=== PATIENT | male | born 1960 | race Caucasian/White ===

== ENCOUNTER → 2016-10-29 | Outpatient (CLI) | payer OTHER ==
[~2016-10-29] MED LIST: IOHEXOL 350 MG/ML 10 ML VIAL (for RAD DIAG) IV ONE
--- NOTE | 2016-10-29 13:46 | RADRPT ---
EXAM DATE/TIME: 10/29/2016 13:13 [facility] COMPARISON: No previous studies available for comparison. INDICATIONS : Evaluate obstructive airway disease,weight loss,chest pains for three months on the right side. IV CONTRAST: 75 cc Omnipaque 350 (iohexol) IV RADIATION DOSE: 3.38 CTDIvol (mGy) MEDICAL HISTORY : Hypertension. SURGICAL HISTORY : None. ENCOUNTER: Initial ACUITY: 3 months PAIN SCALE: 5/10 LOCATION: Right chest TECHNIQUE: Volumetric scanning of the chest was performed. Using automated exposure control and adjustment of t he mA and/or kV according to patient size, radiation dose was kept as low as reasonably achievable to obtain optimal diagnostic quality images. FINDINGS: LUNGS: The lungs demonstrate biapical pleural thickening. There is a irregular area of parenchymal density i dentified within the left upper lobe medially measuring 1.0 x 0.9 x 0.7 cm in size. The remainder of the lungs are clear. No evidence of endobronchial lesion. PLEURA: There is no pleural thickening or pleural effusion. MEDIASTINUM: The heart and great vessels demonstrate no acute abnormality. There is no mediastinal or hilar lymph adenopathy. AXILLAE: Within normal limits. No lymphadenopathy. SKELETAL: Within normal limits for patient age. MISCELLANEOUS: The visualized upper abdominal organs demonstrate no acute abnormality. CONCLUSION: Biapical pleural thickening with nearby irregular noncalcified pulmonary nodule within the left lung apex. This may reflect sequelae of prior inflammation in the adjacent pleural thickening. However, gi colby the appearance of the nodule this may represent a small lung cancer. Recommend short interval fol lowup with CT to evaluate for interval change. Lynn Constantino MD on October 29, 2016 at 13:41 Board Certified Radiologist. This report was verified electronically.
== END ==
LOC: HRAD 12:01
PROVIDERS: ATTEND Family Medicine
DX: J44.9 Chronic obstructive pulmonary disease, unspecified (principal); R63.0 Anorexia; R63.4 Abnormal weight loss
CPT/HCPCS: 71260; Q9967

== ENCOUNTER → 2016-10-29 | Outpatient (CLI) | payer OTHER ==
[2016-10-29 12:46] LABS: AUTOMATED NEUTROPHIL # 4.4 TH/MM3 (1.8-7.7); BASOPHIL # 0.1 TH/MM3 (0-0.2); BASOPHIL % 0.8 % (0.0-2.0); EOSINOPHIL # 0.1 TH/MM3 (0-0.4); EOSINOPHIL % 1.3 % (0.0-4.0); HEMATOCRIT 41.7 % (39.0-51.0); HEMO FLAGS DIFF FINAL; LYMPH % 26.2 % (9.0-44.0); LYMPHOCYTE # 1.9 TH/MM3 (1.0-4.8); MEAN CELL VOLUME 89.7 FL (80.0-100.0); MEAN CORPUSCULAR HEMOGLOBIN 31.5 PG (27.0-34.0); MEAN CORPUSCULAR HGB CONC 35.1 % (32.0-36.0); MONO % 8.8 % (0.0-8.0); NEUT % 62.9 % (16.0-70.0); PLATELET COUNT 268 TH/MM3 (150-450); RED BLOOD COUNT 4.65 MIL/MM3 (4.50-5.90); RED CELL DISTRIBUTION WIDTH 13.3 % (11.6-17.2); WHITE BLOOD COUNT 7.1 TH/MM3 (4.0-11.0)
[2016-10-29 13:18] LABS: ALKALINE PHOSPHATASE 69 U/L (45-117); ALT (GPT) 24 U/L (12-78); ANION GAP 6 MEQ/L (5-15); AST (GOT) 26 U/L (15-37); BICARBONATE 28.8 MEQ/L (21.0-32.0); BLOOD UREA NITROGEN 13 MG/DL (7-18); CHLORIDE 103 MEQ/L (98-107); GLOMERULAR FILTRATION RATE 92 ML/MIN (>89); GLUCOSE,FASTING 84 MG/DL (74-99); HDL CHOLESTEROL 80.8 MG/DL (40.0-60.0); LDL CHOLESTEROL 93 MG/DL (0-99); POTASSIUM 4.2 MEQ/L (3.5-5.1); SODIUM (NA) 138 MEQ/L (136-145); TOTAL BILIRUBIN ADULT 0.3 MG/DL (0.2-1.0)
== END ==
LOC: CLAB 12:15
PROVIDERS: ATTEND Family Medicine
DX: J44.9 Chronic obstructive pulmonary disease, unspecified (principal); R63.4 Abnormal weight loss; R63.0 Anorexia; R53.83 Other fatigue; Z72.0 Tobacco use
CPT/HCPCS: 36415; 80053; 80061; 84443; 85025

== ENCOUNTER → 2017-05-05 | Outpatient (CLI) | payer OTHER ==
[~2017-05-05] MED LIST changes: +AMLO5TAB2 PO; -IOHEXOL 350 MG/ML 10 ML VIAL (for RAD DIAG) IV ONE
[2017-05-05 10:55] LABS: BICARBONATE 25.4 MEQ/L (21.0-32.0); POTASSIUM 3.9 MEQ/L (3.5-5.1)
== END ==
LOC: CLAB 10:13
PROVIDERS: ATTEND Nurse Practitioner Family
DX: R91.1 Solitary pulmonary nodule (principal)
CPT/HCPCS: 36415; 80069

== ENCOUNTER → 2017-05-07 | Outpatient (CLI) | payer OTHER ==
--- NOTE | 2017-05-07 13:26 | RADRPT ---
EXAM DATE/TIME: 05/07/2017 12:55 [facility] COMPARISON: CT THORAX W CONTRAST, October 29, 2016, 13:13. INDICATIONS : Follow up for pulmonary nodule. RADIATION DOSE: 3.37 CTDIvol (mGy) MEDICAL HISTORY : None SURGICAL HISTORY : Inguinal hernia repair. Hemorrhoidectomy. ENCOUNTER: Initial ACUITY: 1 day PAIN SCALE: 2/10 LOCATION: Bilateral chest TECHNIQUE: Volumetric scanning of the chest was performed. Using automated exposure control and adjustment of t he mA and/or kV according to patient size, radiation dose was kept as low as reasonably achievable to obtain optimal diagnostic quality images. DICOM format image data is available electronically for r eview and comparison. Follow-up recommendations for incidentally detected pulmonary nodules are based at a minimum on nodul e size and patient risk factors according to Fleischner Society Guidelines. FINDINGS: LUNGS: There is no consolidation or pneumothorax. Biapical pleural parenchymal scar is stable. In the media l left lung apex there is a stable 9 mm oval noncalcified pulmonary nodule. PLEURAE: There is no pleural thickening or pleural effusion. MEDIASTINUM: The heart and great vessels demonstrate no acute abnormality. There is no mediastinal or hilar lymph adenopathy. There is coronary artery calcification. AXILLAE: Within normal limits. No lymphadenopathy. MUSCULOSKELETAL: Within normal limits for patient age. MISCELLANEOUS: The visualized upper abdominal organs demonstrate no acute abnormality. CONCLUSION: 1. Stable 9 mm noncalcified nodule at the left lung apex adjacent to chronic biapical pleural-parench ymal scarring. Based on Fleischner Society followup recommendations, consider 6-12 month followup non contrast chest CT to confirm longer-term stability. 2. Coronary artery calcification. Bhupinder Lim MD on May 07, 2017 at 13:12 Board Certified Radiologist. This report was verified electronically.
== END ==
LOC: HRAD 12:28
PROVIDERS: ATTEND Family Medicine
DX: R91.1 Solitary pulmonary nodule (principal)
CPT/HCPCS: 71250

== ENCOUNTER 2018-03-04 14:00 | Emergency (ER) | payer SELFPAY ==
[~2018-03-04] VITALS: Ht 180.3 cm; Wt 55.0 kg
[2018-03-04 15:04] VITALS: BP 180/98; PULSE 66; RESP 16; TEMP 97.9; O2SAT 100
[2018-03-04] MEDS ORDERED: NAPR500T2 PO (16:35)
--- NOTE | 2018-03-04 16:35 | PD ---
HPI Chief Complaint: Injury Time Seen by Provider: 16:06 Travel History International Travel<30 days: No Contact w/Intl Traveler<30days: No Traveled to known affect area: No History of Present Illness HPI 57-year-old male presents to the emergency department with complaint of left knee pain and left hip pain 2 days. Said he was playing with his knees the other day and heard a "pop" in his left knee. Denies traumatic injury. Is ambulatory on the affected extremity. Denies paresthesias, loss of sensation, decreased range of motion, decreased strength to affected extremity. Rates pain 10/10. Has taken aspirin for symptom management. Aggravated with ambulation and movement. Better at rest. Denies significant past medical history. No primary care provider. No known allergies. No other medical complaints. No other modifying factors or associated signs and symptoms. PFSH Past Surgical History Abdominal Surgery: Yes (hernia repair as child) Social History Alcohol Use: Yes (6 pack per day) Tobacco Use: Yes (2ppd) Substance Use: Yes (marijanna) Allergies-Medications (Allergen,Severity, Reaction): Coded Allergies: No Known Allergies (Unverified Adverse Reaction, Unknown, 03/04/18) Reported Meds & Prescriptions Reported Meds & Active Scripts Active Naproxen 500 Mg Tab 500 Mg PO BID PRN 10 Days Amlodipine (Amlodipine Besylate) 5 Mg Tab 5 Mg PO DAILY Review of Systems Except as stated in HPI: all other systems reviewed are Neg Physical Exam Narrative GENERAL: Well-nourished, well-developed patient, in no acute distress ; afebrile, nontoxic-appearing SKIN: Warm and dry. HEAD: Atraumatic. Normocephalic. EYES: Pupils equal and round. No scleral icterus. No injection or drainage. ENT: Mucosa pink and moist. Airway patent. NECK: Trachea midline. CARDIOVASCULAR: Regular rate RESPIRATORY: No accessory muscle use. GASTROINTESTINAL: Flat. MUSCULOSKELETAL: Left hip with full range of motion; without erythema, edema, or ecchymosis; without tenderness on abduction; tenderness on palpation to the lateral aspect; no obvious deformity; no leg length discrepancy. Left knee without erythema, edema, ecchymosis; with full range of motion and flexion to 90 ; joint stable with negative drawer test; tenderness on palpation to the medial aspect. Left lower extremity is supple and non-tense with 2+ pedal pulse and sensory intact and without erythema or edema. Ambulatory in the room with a limp to the left lower extremity. NEUROLOGICAL: Awake and alert. Oriented 3. No obvious cranial nerve deficits. Motor grossly within normal limits. Normal speech. PSYCHIATRIC: Appropriate mood and affect; insight and judgment normal. Data Data Last Documented VS Vital Signs Date Time Temp Pulse Resp B/P (MAP) Pulse Ox O2 Delivery O2 Flow Rate FiO2 03/04/18 15:04 97.9 66 16 180/98 (125) 100 Orders Orders Ed Discharge Order (03/04/18 16:35) [facility] Medical Decision Making Medical Screen Exam Complete: Yes Emergency Medical Condition: Yes Medical Record Reviewed: Yes Differential Diagnosis Arthritis, knee sprain, hip pain, knee pain Narrative Course 57-year-old male with left hip pain and left knee pain. Denies traumatic injury. Patient is ambulatory in the room with a limp to the left lower extremity. I do not suspect fracture, dislocation and feel that imaging is not necessary at this time. Naproxen prescribed for home. Instructed patient to follow-up with primary care provider or orthopedics if symptoms persist greater than 7-10 days. Instructed patient to follow up with primary care provider. Patient verbalizes understanding and agreement with treatment plan. Patient is medically cleared and stable for discharge. Discussed reasons to return to the emergency department. Patient agrees with treatment plan. The patients vital signs are stable and the patient is stable for outpatient follow-up and treatment. Patient discharged home, stable and in no acute distress. Diagnosis Primary Impression: Left hip pain Additional Impression: Left knee pain Qualified Codes: M25.562 - Pain in left knee Referrals: Orthopaedic Surgeon Primary Care Physician Patient Instructions: General Instructions, Hip Pain (ED), Knee Pain (ED) Additional Instructions: Ibuprofen and/or Tylenol as directed and as needed for pain Cane as needed for support with ambulation Avoid aggravating activity; crease activity as tolerated Follow-up with orthopedics as needed Follow-up outpatient with primary care provider if symptoms persist greater than 7-10 days Follow-up with primary care provider Return to the emergency department immediately if worsening of symptoms Med/Other Pt SpecificInfo: Prescription(s) given Scripts Naproxen (Naproxen) 500 Mg Tab 500 MG PO BID Y for PAIN SCALE 1 TO 10 for 10 Days, #20 TAB 0 Refills Prov: Reena Botello 03/04/18 Disposition: 01 DISCHARGE HOME Condition: Stable Reena Botello March 04, 2018 16:35
== END 2018-03-04 16:54 | disposition home or self-care (01) ==
LOC: NEPK 14:00
DX: M25.552 Pain in left hip (principal); M25.562 Pain in left knee; F12.90 Cannabis use, unspecified, uncomplicated; F17.200 Nicotine dependence, unspecified, uncomplicated
CPT/HCPCS: 99283

== ENCOUNTER 2018-03-10 09:01 | Observation (INO) | payer SELFPAY ==
[2018-03-10] VITALS (7 sets, daily range): BP systolic 118–194; BP diastolic 67–111; PULSE 58–79; RESP 16–24; TEMP 97.5–98; O2SAT 96–100
[~2018-03-10] VITALS: Ht 180.3 cm; Wt 60.0 kg
[~2018-03-10 09:01] MED LIST changes: +NAPR500T2 PO
--- NOTE | 2018-03-10 09:57 | PD ---
HPI Chief Complaint: Respiratory Symptoms Time Seen by Provider: 09:54 Travel History International Travel<30 days: No Contact w/Intl Traveler<30days: No Traveled to known affect area: No History of Present Illness HPI 57-year-old male presents to the emergency department for evaluation of shortness of breath, lightheadedness, left-sided chest pain. Patient states that he has been short of breath and lightheaded for approximately 2 days. He states the shortness of breath is worse with exertion. Patient states the lightheadedness is worse with movement. He denies any syncope or falls. Patient also states that he has left-sided chest pain for 2 weeks. He cannot elaborate on any exacerbating or alleviating factors. He states is currently 5/ 10, occasionally sharp and occasionally aching. Patient states that he is not following with a primary care physician since the community clinic close. He was diagnosed with hypertension, but is not taking any medications at this time. He also states that he was told that he may "be getting COPD". Patient denies any cardiac history. No fevers or chills. No abdominal pain. No nausea , vomiting, diarrhea. Moderate severity. PFSH Past Surgical History Abdominal Surgery: Yes (hernia repair as child) Social History Alcohol Use: Yes (6 pack per day) Tobacco Use: Yes (2ppd) Substance Use: Yes (marijanna) Allergies-Medications (Allergen,Severity, Reaction): Coded Allergies: No Known Allergies (Unverified Adverse Reaction, Unknown, 03/04/18) Reported Meds & Prescriptions Reported Meds & Active Scripts Active Naproxen 500 Mg Tab 500 Mg PO BID PRN 10 Days Amlodipine (Amlodipine Besylate) 5 Mg Tab 5 Mg PO DAILY Review of Systems Except as stated in HPI: all other systems reviewed are Neg Physical Exam Narrative GENERAL: Well-nourished, well-developed male patient, ambulatory. Afebrile. SKIN: Focused skin assessment warm/dry. HEAD: Normocephalic. Atraumatic ENT: Mucosa pink and moist. No erythema or exudates. No uvular edema. No uvular , palatal, or tonsillar deviation. Airway patent. Nasal turbinates appear normal without nasal blood, purulent drainage or septal hematoma. Bilateral tympanic membranes clear without erythema or perforation. EYES: No scleral icterus. No injection or drainage. NECK: Supple, trachea midline. No JVD or lymphadenopathy. CARDIOVASCULAR: Regular rate and rhythm without murmurs, gallops, or rubs. Bilateral radial and pedal pulses are 2+. RESPIRATORY: Breath sounds equal bilaterally. No accessory muscle use. Lung sounds are clear to auscultation. GASTROINTESTINAL: Abdomen soft, non-tender, nondistended. MUSCULOSKELETAL: No cyanosis, or edema. Bilateral radial and pedal pulses are 2 +. BACK: Nontender without obvious deformity. No CVA tenderness. Data Data Last Documented VS Vital Signs Date Time Temp Pulse Resp B/P (MAP) Pulse Ox O2 Delivery O2 Flow Rate FiO2 03/10/18 10:37 69 16 155/84 (107) 99 Room Air 03/10/18 09:20 97.5 Orders Orders Electrocardiogram (03/10/18 10:38) B-Type Natriuretic Peptide (03/10/18 10:38) Ckmb (Isoenzyme) Profile (03/10/18 10:38) Complete Blood Count With Diff (03/10/18 10:38) Comprehensive Metabolic Panel (03/10/18 10:38) Magnesium (Mg) (03/10/18 10:38) Prothrombin Time / Inr (Pt) (03/10/18 10:38) Act Partial Throm Time (Ptt) (03/10/18 10:38) Troponin I (03/10/18 10:38) Lipase (03/10/18 10:38) Ecg Monitoring (03/10/18 10:38) Bilateral Bp Monitoring (03/10/18 10:38) Iv Access Insert/Monitor (03/10/18 10:38) Oximetry (03/10/18 10:38) Oxygen Administration (03/10/18 10:38) Aspirin (Aspirin) (03/10/18 10:45) Sodium Chloride 0.9% Flush (Ns Flush) (03/10/18 10:45) Chest, Pa & Lat (03/10/18 10:38) CKMB (03/10/18 11:00) CKMB% (03/10/18 11:00) Admit Order (Ed Use Only) (03/10/18 12:00) Labs Laboratory Tests Test 03/10/18 11:00 White Blood Count 6.5 TH/MM3 Red Blood Count 5.01 MIL/MM3 Hemoglobin 15.4 GM/DL Hematocrit 45.7 % Mean Corpuscular Volume 91.1 FL Mean Corpuscular Hemoglobin 30.6 PG Mean Corpuscular Hemoglobin Concent 33.6 % Red Cell Distribution Width 13.5 % Platelet Count 299 TH/MM3 Mean Platelet Volume 9.1 FL Neutrophils (%) (Auto) 60.8 % Lymphocytes (%) (Auto) 27.2 % Monocytes (%) (Auto) 10.4 % Eosinophils (%) (Auto) 0.9 % Basophils (%) (Auto) 0.7 % Neutrophils # (Auto) 4.0 TH/MM3 Lymphocytes # (Auto) 1.8 TH/MM3 Monocytes # (Auto) 0.7 TH/MM3 Eosinophils # (Auto) 0.1 TH/MM3 Basophils # (Auto) 0.0 TH/MM3 CBC Comment DIFF FINAL Differential Comment Prothrombin Time 10.8 SEC Prothromb Time International Ratio 1.1 RATIO Activated Partial Thromboplast Time 29.5 SEC Blood Urea Nitrogen 14 MG/DL Creatinine 0.80 MG/DL Random Glucose 90 MG/DL Total Protein 8.2 GM/DL Albumin 4.2 GM/DL Calcium Level 9.0 MG/DL Magnesium Level 2.1 MG/DL Alkaline Phosphatase 76 U/L Aspartate Amino Transf (AST/SGOT) 37 U/L Alanine Aminotransferase (ALT/SGPT) 30 U/L Total Bilirubin 0.5 MG/DL Sodium Level 138 MEQ/L Potassium Level 3.9 MEQ/L Chloride Level 101 MEQ/L Carbon Dioxide Level 26.2 MEQ/L Anion Gap 11 MEQ/L Estimat Glomerular Filtration Rate 99 ML/MIN Total Creatine Kinase 385 U/L Creatine Kinase MB 6.9 NG/ML Creatine Kinase MB % 1.8 % Troponin I LESS THAN 0.02 NG/ML B-Type Natriuretic Peptide 13 PG/ML Lipase 137 U/L [facility] Medical Decision Making Medical Screen Exam Complete: Yes Emergency Medical Condition: Yes Medical Record Reviewed: Yes Differential Diagnosis URI versus ACS versus COPD versus electrolyte abnormality Narrative Course 57-year-old male presents to the emergency department for evaluation of shortness breath, lightheadedness, left-sided chest pain. Patient is initially seen in the fast track area. However, he will be moved to medical bed for further evaluation and disposition. Mary Ellen Barron March 10, 2018 09:57
[2018-03-10] MEDS ORDERED: SODIUM CHLORIDE 0.9% FLUSH 10 ML FLUSH IVF PRN (10:45)
[2018-03-10] MEDS ORDERED: ASPIRIN 325 MG TAB PO ONE (10:45)
[2018-03-10 11:21] LABS: BASOPHIL % 0.7 % (0.0-2.0); EOSINOPHIL # 0.1 TH/MM3 (0-0.4); EOSINOPHIL % 0.9 % (0.0-4.0); HEMATOCRIT 45.7 % (39.0-51.0); HEMOGLOBIN 15.4 GM/DL (13.0-17.0); LYMPH % 27.2 % (9.0-44.0); LYMPHOCYTE # 1.8 TH/MM3 (1.0-4.8); MEAN CELL VOLUME 91.1 FL (80.0-100.0); MEAN CORPUSCULAR HEMOGLOBIN 30.6 PG (27.0-34.0); MEAN CORPUSCULAR HGB CONC 33.6 % (32.0-36.0); MEAN PLATELET VOLUME 9.1 FL (7.0-11.0); MONO % 10.4 % (0.0-8.0); MONOCYTE # 0.7 TH/MM3 (0-0.9); NEUT % 60.8 % (16.0-70.0); PLATELET COUNT 299 TH/MM3 (150-450); RED BLOOD COUNT 5.01 MIL/MM3 (4.50-5.90); RED CELL DISTRIBUTION WIDTH 13.5 % (11.6-17.2); WHITE BLOOD COUNT 6.5 TH/MM3 (4.0-11.0)
[2018-03-10 11:30] LABS: INTERNATIONAL NORMALIZED RATIO 1.1 RATIO; PROTHROMBIN TIME - PATIENT 10.8 SEC (9.8-11.6)
--- NOTE | 2018-03-10 11:30 | RADRPT ---
EXAM DATE: 03/10/2018 11:20 AM EDT AGE/SEX: 57 years / Male INDICATIONS: Chest pain CLINICAL DATA: This is the patient's initial encounter. Patient reports that signs and symptoms have been present for 4 - 6 days and indicates a pain score of 4/10. MEDICAL/SURGICAL HISTORY: Cardiovascular disease. None. COMPARISON: [facility] [place], 10/15/2015. . FINDINGS: Lungs are hyperexpanded Without new focal pleural or parenchymal opacities. Small nodule noted on previous chest CT exam is n ot well demonstrated on radiograph. Cardiomediastinal contours are within normal limits. Bony thorax is intact. CONCLUSION: 1. No acute abnormality or significant interval change. Electronically signed by: Fady Silva MD 03/10/2018 11:29 AM EDT
[2018-03-10 11:33] LABS: ALBUMIN 4.2 GM/DL (3.4-5.0); ALT (GPT) 30 U/L (12-78); AST (GOT) 37 U/L (15-37); BICARBONATE 26.2 MEQ/L (21.0-32.0); BLOOD UREA NITROGEN 14 MG/DL (7-18); CHLORIDE 101 MEQ/L (98-107); GLOMERULAR FILTRATION RATE 99 ML/MIN (>89); GLUCOSE,RANDOM 90 MG/DL (74-106); MAGNESIUM 2.1 MG/DL (1.5-2.5); SODIUM (NA) 138 MEQ/L (136-145)
[2018-03-10 11:37] LABS: ALKALINE PHOSPHATASE 76 U/L (45-117); TOTAL BILIRUBIN ADULT 0.5 MG/DL (0.2-1.0); TOTAL PROTEIN 8.2 GM/DL (6.4-8.2); TROPONIN I LESS THAN 0.02 NG/ML (0.02-0.05)
[2018-03-10] MEDS ORDERED: IOHEXOL 350 MG/ML 50 ML BTL (for Cath Lab) OTHER ONE (12:02)
--- NOTE | 2018-03-10 12:04 | PD ---
Physical Exam Date Seen by Provider: March 10, 2018 Time Seen by Provider: 11:00 Narrative I, Dr. Ortiz, have reviewed the advance practice practitioner's documentation and am in agreement, met with the patient face to face, made the diagnosis, and the medical decision making was done by me. *My assessment and Findings: Patient seen and evaluated initially by PA, please see PA notes for further details. In short, patient has history of COPD, coming in with a left-sided chest pains, little shortness of breath, satting at 100%. On exam, cardiac evaluation was fairly unremarkable. Pulmonary exam shows decreased breath sounds bilaterally without crackles. Initial EKG did not show any signs of acute ST changes. He is bradycardic at a rate of 56 bpm. Chest x-ray shows signs of COPD but no signs of other acute pulmonary processes. Lab work shows a negative cardiac enzymes. But considering his history, and atypical chest pain, my plan would be to admit him for further evaluation of chest pain. He has been given aspirin in the ER. Laboratory Tests Test 03/10/18 11:00 Monocytes (%) (Auto) 10.4 % (0.0-8.0) Total Creatine Kinase 385 U/L (39-308) Creatine Kinase MB 6.9 NG/ML (0.5-3.6) Troponin I LESS THAN 0.02 NG/ML Last 24 hours Impressions Chest X-Ray 03/10/18 1038 Signed Impressions: CONCLUSION: 1. No acute abnormality or significant interval change. Data Data Last Documented VS Vital Signs Date Time Temp Pulse Resp B/P (MAP) Pulse Ox O2 Delivery O2 Flow Rate FiO2 03/10/18 10:37 69 16 155/84 (107) 99 Room Air 03/10/18 09:20 97.5 Orders Orders Electrocardiogram (03/10/18 10:38) B-Type Natriuretic Peptide (03/10/18 10:38) Ckmb (Isoenzyme) Profile (03/10/18 10:38) Complete Blood Count With Diff (03/10/18 10:38) Comprehensive Metabolic Panel (03/10/18 10:38) Magnesium (Mg) (03/10/18 10:38) Prothrombin Time / Inr (Pt) (03/10/18 10:38) Act Partial Throm Time (Ptt) (03/10/18 10:38) Troponin I (03/10/18 10:38) Lipase (03/10/18 10:38) Ecg Monitoring (03/10/18 10:38) Bilateral Bp Monitoring (03/10/18 10:38) Iv Access Insert/Monitor (03/10/18 10:38) Oximetry (03/10/18 10:38) Oxygen Administration (03/10/18 10:38) Aspirin (Aspirin) (03/10/18 10:45) Sodium Chloride 0.9% Flush (Ns Flush) (03/10/18 10:45) Chest, Pa & Lat (03/10/18 10:38) CKMB (03/10/18 11:00) CKMB% (03/10/18 11:00) Admit Order (Ed Use Only) (03/10/18 12:00) Labs Laboratory Tests Test 03/10/18 11:00 White Blood Count 6.5 TH/MM3 Red Blood Count 5.01 MIL/MM3 Hemoglobin 15.4 GM/DL Hematocrit 45.7 % Mean Corpuscular Volume 91.1 FL Mean Corpuscular Hemoglobin 30.6 PG Mean Corpuscular Hemoglobin Concent 33.6 % Red Cell Distribution Width 13.5 % Platelet Count 299 TH/MM3 Mean Platelet Volume 9.1 FL Neutrophils (%) (Auto) 60.8 % Lymphocytes (%) (Auto) 27.2 % Monocytes (%) (Auto) 10.4 % Eosinophils (%) (Auto) 0.9 % Basophils (%) (Auto) 0.7 % Neutrophils # (Auto) 4.0 TH/MM3 Lymphocytes # (Auto) 1.8 TH/MM3 Monocytes # (Auto) 0.7 TH/MM3 Eosinophils # (Auto) 0.1 TH/MM3 Basophils # (Auto) 0.0 TH/MM3 CBC Comment DIFF FINAL Differential Comment Prothrombin Time 10.8 SEC Prothromb Time International Ratio 1.1 RATIO Activated Partial Thromboplast Time 29.5 SEC Blood Urea Nitrogen 14 MG/DL Creatinine 0.80 MG/DL Random Glucose 90 MG/DL Total Protein 8.2 GM/DL Albumin 4.2 GM/DL Calcium Level 9.0 MG/DL Magnesium Level 2.1 MG/DL Alkaline Phosphatase 76 U/L Aspartate Amino Transf (AST/SGOT) 37 U/L Alanine Aminotransferase (ALT/SGPT) 30 U/L Total Bilirubin 0.5 MG/DL Sodium Level 138 MEQ/L Potassium Level 3.9 MEQ/L Chloride Level 101 MEQ/L Carbon Dioxide Level 26.2 MEQ/L Anion Gap 11 MEQ/L Estimat Glomerular Filtration Rate 99 ML/MIN Total Creatine Kinase 385 U/L Creatine Kinase MB 6.9 NG/ML Creatine Kinase MB % 1.8 % Troponin I LESS THAN 0.02 NG/ML Lipase 137 U/L [facility] Medical Record Reviewed: Yes Supervised Visit with CASTRO: Yes Diagnosis Primary Impression: Chest pain Admitting Information Admitting Physician Requests: Admit Brigid Ortiz MD March 10, 2018 12:04
[2018-03-10] MEDS ORDERED: NITROGLYCERIN 0.4 MG SL 25 TABS/BTL SL PRN (12:30)
[2018-03-10] MEDS ORDERED: ONDANSETRON ODT 4 MG TAB PO PRN (12:30)
--- NOTE | 2018-03-10 13:14 | HHI.HP ---
HPI Primary Care Physician No Primary Care Physician Chief Complaint Chest pain and dyspnea History of Present Illness 57-year-old male with history of hypertension (currently not on medication), 90 pack year history of smoking, and known left lobe mass presents to ER for further evaluation of chest pain and dyspnea. Reports similar symptoms a couple of years ago. Reports discomfort lead PCP to run tests, identifying left lobe mass. Endorses PET scan completed last year and was recommended to follow up CT chest every 6 months. Since this time [facility] as closed and efforts have been unsuccessful obtaining a PCP. Unable to afford [facility] and reports not being a candidate for [facility]. Intermittent chest discomfort x1 week. No precipitating or relieving factors. Quick onset characterized as "jabbing pain." Location bilateral inframammary area. No radiation. Severe moderate. Associated symptoms include nausea and dyspnea. No vomiting or diaphoresis. Duration "only a few minutes." Total of 3-4 episodes, generally experiencing discomfort daily or every other day. In regards to dyspnea, endorses long standing history of smoking, recently quit one month ago. Dyspnea x1 week after walking short distances and does not have associated chest pain. Recovers within 5 minutes. Associated symptoms of "lightheadedness. " No increase in sputum production or cough. No recent fever, chills, or illness. (Crys Spencer) Review of Systems General: No fatigue, weakness, fever, chills, or recent illness. Has been in his general state of health. HEENT: No CARIAS, no vision changes, no nasal congestion or drainage CV: As stated above. No current chest pain or pressure. No intermittent leg pain. RESP: As stated above, exertional dyspnea after walking short distances. No increase in daily productive cough of white mucus. No hemoptysis. Known left lobe mass. GI: No nausea, vomiting, or bowel changes.Endorses poor appetite for "at least 2 years." : No dysuria, urgency, frequency EXT: No lower leg edema, no paraesthesias MS: No discomfort, injury, or change in ROM NEURO: No change in memory, difficulty with balance, LOC, motor/sensory deficits PSYCH: No anxiety or depression SKIN: No rashes, no concerning lesions (Crys Spencer) Past Family Social History Allergies: Coded Allergies: No Known Allergies (Unverified Adverse Reaction, Unknown, 03/04/18) Past Medical History Hypertension Past Surgical History Hernia repair Reported Medications Reported Meds & Active Scripts Active None Active Ordered Medications Current Medications Medications (Trade) Dose Ordered Sig/Reji Route Start Time Stop Time Status Last Admin (NS Flush) 2 ml UNSCH PRN IVF 03/10/18 10:45 (NS Flush) 2 ml BID IV FLUSH 03/10/18 21:00 (Tylenol) 500 mg Q4H PRN PO 03/10/18 12:30 (Zofran Odt) 4 mg Q6H PRN PO 03/10/18 12:30 (Nitrostat Sl) 0.4 mg Q5M PRN SL 03/10/18 12:30 (Aspirin) 325 mg DAILY PO 03/11/18 09:00 (Norvasc) 5 mg DAILY PO 03/10/18 12:45 Family History Noncontributory for early onset cardiovascular disease. Mother had hypertension and cardiomegaly, in her early 50s. Social History Known hypertension, currently not on any medications. No known hyperlipidemia, diabetes, or CAD. Former smoker quitting 1 month ago. Started smoking age 8, endorses 1.5-2 packs daily. Former alcohol abuse, quitting 2 year ago. Endorses regularly smokes marijuana when able. 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 Past cardiac testing None (Crys Spencer) Physical Exam Vital Signs Vital Signs Date Time Temp Pulse Resp B/P (MAP) Pulse Ox O2 Delivery O2 Flow Rate FiO2 03/10/18 10:37 69 16 155/84 (107) 99 Room Air 03/10/18 09:20 97.5 79 24 179/92 (121) 100 Physical Exam GENERAL: Alert thin, WD, NAD, pleasant, male who appears older than stated age somewhat unkempt. HEAD: NC, AT EYES: Sclera clear, conjunctiva without injection, pupils equal and round ENT: Mucous membranes pink and moist, poor dentition, leukoplakia. NECK: Supple, no masses, trachea midline CV: RRR, without murmur, rub, gallop, no JVD, S1-S2 no S3-S4. No carotid bruits. Chest wall nontender with palpation. RESP: Diminished lungs throughout bilateral, no crackles, wheeze, or rhonchi. Symmetrical chest rise, nonlabored, able to speak in full sentences ABD: Soft, NT, ND, no masses, positive bowel tones EXT: Pulses +1x4, no dependent edema MS: Normal tone x4 extremities, no obvious deformities, full range of motion NEURO: CN II through CN XII grossly intact, motor strength 5/5 PSYCH: A+O x3, pleasant affect, speech, mood, insight and judgment SKIN: Normal turgor, normal texture, no lesions, no rashes, solar damage Laboratory Laboratory Tests Test 03/10/18 11:00 White Blood Count 6.5 Red Blood Count 5.01 Hemoglobin 15.4 Hematocrit 45.7 Mean Corpuscular Volume 91.1 Mean Corpuscular Hemoglobin 30.6 Mean Corpuscular Hemoglobin Concent 33.6 Red Cell Distribution Width 13.5 Platelet Count 299 Mean Platelet Volume 9.1 Neutrophils (%) (Auto) 60.8 Lymphocytes (%) (Auto) 27.2 Monocytes (%) (Auto) 10.4 Eosinophils (%) (Auto) 0.9 Basophils (%) (Auto) 0.7 Neutrophils # (Auto) 4.0 Lymphocytes # (Auto) 1.8 Monocytes # (Auto) 0.7 Eosinophils # (Auto) 0.1 Basophils # (Auto) 0.0 CBC Comment DIFF FINAL Differential Comment Prothrombin Time 10.8 Prothromb Time International Ratio 1.1 Activated Partial Thromboplast Time 29.5 Blood Urea Nitrogen 14 Creatinine 0.80 Random Glucose 90 Total Protein 8.2 Albumin 4.2 Calcium Level 9.0 Magnesium Level 2.1 Alkaline Phosphatase 76 Aspartate Amino Transf (AST/SGOT) 37 Alanine Aminotransferase (ALT/SGPT) 30 Total Bilirubin 0.5 Sodium Level 138 Potassium Level 3.9 Chloride Level 101 Carbon Dioxide Level 26.2 Anion Gap 11 Estimat Glomerular Filtration Rate 99 Total Creatine Kinase 385 Creatine Kinase MB 6.9 Creatine Kinase MB % 1.8 Troponin I LESS THAN 0.02 B-Type Natriuretic Peptide 13 Lipase 137 (Crys Spencer) Physical Exam Mouth: Very poor dentition with severe caries and some leukoplakia right lower gum near jaw. (Sebastian Lovett MD) Result Diagram: 03/10/18 1100 03/10/18 1100 Imaging Last 48 hours Impressions Chest X-Ray 03/10/18 1038 Signed Impressions: CONCLUSION: 1. No acute abnormality or significant interval change. Course EKG NSR, normal axis, no st t segment change (Crys Spencer) Caprini VTE Risk Assessment Caprini VTE Risk Assessment: No/Low Risk (score <= 1) Caprini Risk Assessment Model Point Value = 1 Point Value = 2 Point Value = 3 Point Value = 5 Age 41-60 Minor surgery BMI > 25 kg/m2 Swollen legs Varicose veins or History of unexplained or recurrent spontaneous Oral contraceptives or hormone replacement Sepsis (< 1 month) Serious lung disease, including pneumonia (< 1 month) Abnormal pulmonary function Acute myocardial infarction Congestive heart failure (< 1 month) History of inflammatory bowel disease Medical patient at bed rest Age 61-74 Arthroscopic surgery Major open surgery (> 45 min) Laparoscopic surgery (> 45 min) Malignancy Confined to bed (> 72 hours) Immobilizing plaster cast Central venous access Age >= 75 History of VTE Family history of VTE Factor V Leiden Prothrombin [id number] Lupus anticoagulant Anticardiolipin antibodies Elevated serum homocysteine Heparin-induced thrombocytopenia Other congenital or acquired thrombophilia Stroke (< 1 month) Elective arthroplasty Hip, pelvis, or leg fracture Acute spinal cord injury (< 1 month) Prophylaxis Regimen Total Risk Factor Score Risk Level Prophylaxis Regimen 0-1 Low Early ambulation 2 Moderate Order ONE of the following: *Sequential Compression Device (SCD) *Heparin 5000 units SQ BID 3-4 Higher Order ONE of the following medications: *Heparin 5000 units SQ TID *Enoxaparin/Lovenox 40 mg SQ daily (WT < 150 kg, CrCl > 30 mL/min) *Enoxaparin/Lovenox 30 mg SQ daily (WT < 150 kg, CrCl > 10-29 mL/min) *Enoxaparin/Lovenox 30 mg SQ BID (WT < 150 kg, CrCl > 30 mL/min) AND/OR *Sequential Compression Device (SCD) 5 or more Highest Order ONE of the following medications: *Heparin 5000 units SQ TID (Preferred with Epidurals) *Enoxaparin/Lovenox 40 mg SQ daily (WT < 150 kg, CrCl > 30 mL/min) *Enoxaparin/Lovenox 30 mg SQ daily (WT < 150 kg, CrCl > 10-29 mL/min) *Enoxaparin/Lovenox 30 mg SQ BID (WT < 150 kg, CrCl > 30 mL/min) AND *Sequential Compression Device (SCD) (Crys Spencer) Assessment and Plan Assessment and Plan #1 Atypical chest pain-admitted to chest pain center. Rule out with 3 sets of EKGs, cardiac enzymes, and monitor on telemetry. Will be seen and dilated by Dr. Sebastian Lovett. Discomfort most likely pleuritic or musculoskeletal in nature, however due to multiple risk factors cardiac testing he unreasonable. Further disposition to follow after evaluation by technician support engineer. Verbalized understanding and agreed with plan of care. #2 Hypertension-restart amlodipine 5 mg p.o. daily, prescription will be provided upon discharge, encouraged establishing with a PCP, previously made aware of [facility] and [facility] in area. Reports he is not a candidate for either clinic. #3 History of left lobe mass-establish with a PCP for recommended chest CT every 6 months, PET scan negative May 2017, discussed unlikelihood of repeating CT chest however this will be determined after evaluation of technician support engineer. #4 COPD-discussed symptoms likely due to long standing history of tobacco use, no acute physical findings, albuterol nebs Q2H PRN for SOB/wheezing. Instructed to notify RN as needed. Verbalized understanding. Discussed importance of not restarting tobacco use. Discussed cost of inhalers and his inability to afford in length. Encouraged him to reconsider [facility] and/or speaking with someone from Human Services. #5 Tobacco use-strongly encouraged and stressed the importance of continuing tobacco cessation (Crys Spencer) Assessment and Plan Plan discussed and agreed upon. Will obtain FU evaluation of the reported lung mass and then evaluate for ischemia by protocol. (Sebastian Lovett MD) Crys Spencer March 10, 2018 13:14 Sebastian Lovett MD March 10, 2018 15:30
[2018-03-10] MEDS ORDERED: RESP: ALBUTEROL 2.5 MG/3 ML NEB (PRN) NEB (13:15)
[2018-03-10] MEDS: amLODIPine BESYLATE 5 MG TAB PO SCH (14:09)
--- NOTE | 2018-03-10 15:54 | EKG ---
Date Performed: 03/10/2018 Time Performed: 11:23:18 PTAGE: 57 years EKG: SINUS BRADYCARDIA BORDERLINE ECG Rate has slowed otherwise no significant change PREVIOUS TRACING : 10/15/2015 11.12 DOCTOR: Sebastian Lovett Interpretating Date/Time 03/10/2018 15:52:39
[2018-03-10 16:29] LABS: TROPONIN I LESS THAN 0.02 NG/ML (0.02-0.05)
--- NOTE | 2018-03-10 16:51 | RADRPT ---
EXAM DATE: 03/10/2018 4:27 PM EDT AGE/SEX: 57 years / Male INDICATIONS: Shortness of breath, chest pain CLINICAL DATA: This is the patient's initial encounter. Patient reports that signs and symptoms have been present for 1 day and indicates a pain score of 5/10. MEDICAL/SURGICAL HISTORY: Chronic obstructive pulmonary disease. Hypertension. Abnormality on left lung None. RADIATION DOSE: 5.23 CTDI (mGy) COMPARISON: [facility] [place], CT THORAX W/O CONTRAST, 05/07/2017. . TECHNIQUE: Multiple contiguous axial images were obtained through the chest without contrast. Image s were obtained in suspended respiration using multiple row detector helical technique. Using automa nile exposure control and adjustment of the mA and/or kV according to patient size, radiation dose was kept as low as reasonably achievable to obtain optimal diagnostic quality images. FINDINGS: Lung: Redemonstration of biapical parenchymal scarring with a stable 8 mm subpleural nodule anterior ly in the left lung apex. No additional focal new parenchymal opacities. Pleura: No effusion, significant pleural thickening or pneumothorax. Mediastinum: Heart is unremarkable without pericardial effusion. No evidence of mediastinal or hilar adenopathy. Mild coronary artery cavitations. Osseous Structures: No abnormal focal lytic or blastic bony lesions. Soft Tissues: Soft tissues are unremarkable. No significant axillary adenopathy. Other: Visualized upper abdomen is unremarkable. CONCLUSION: 1. Redemonstration of biapical scarring with stable 8 mm subpleural solid nodule in the anterior lef t lung apex. Consider follow-up CT examination in 18-24 months per 2017 Fleischner criteria. 2. Mild coronary artery calcifications. Electronically signed by: Fady Silva MD 03/10/2018 4:50 PM EDT
[2018-03-10] MEDS ORDERED: cloNIDine HCL 0.1 MG TAB PO PRN (17:30)
[2018-03-10 18:58] LABS: TROPONIN I LESS THAN 0.02 NG/ML (0.02-0.05)
[2018-03-10] MEDS: SODIUM CHLORIDE 0.9% FLUSH 10 ML FLUSH IV FLUSH SCH (20:19)
[2018-03-11] VITALS (7 sets, daily range): BP systolic 139–151; BP diastolic 64–81; PULSE 59–70; RESP 16–22; TEMP 97.7–98.7; O2SAT 97–100
--- NOTE | 2018-03-11 08:02 | PD.CARD.PN ---
Subjective Subjective Remarks Intermittent sharp pain overnight, no precipitating or relieving factors, duration generally last seconds. No associated symptoms. States similar discomfort a couple of years ago. Otherwise no further complaints, slept well Objective Medications Current Medications Medications (Trade) Dose Ordered Sig/Reji Route Start Time Stop Time Status Last Admin (NS Flush) 2 ml UNSCH PRN IVF 03/10/18 10:45 (NS Flush) 2 ml BID IV FLUSH 03/10/18 21:00 (Tylenol) 500 mg Q4H PRN PO 03/10/18 12:30 (Zofran Odt) 4 mg Q6H PRN PO 03/10/18 12:30 (Nitrostat Sl) 0.4 mg Q5M PRN SL 03/10/18 12:30 (Aspirin) 325 mg DAILY PO 03/11/18 09:00 (Norvasc) 5 mg DAILY PO 03/10/18 12:45 03/10/18 14:09 (Albuterol Neb) 2.5 mg Q2HR NEB PRN NEB 03/10/18 13:15 (Catapres) 0.1 mg Q6H PRN PO 03/10/18 17:30 Vital Signs / I&O Vital Signs Date Time Temp Pulse Resp B/P (MAP) Pulse Ox O2 Delivery O2 Flow Rate FiO2 03/11/18 07:55 97 21 03/11/18 07:34 97.7 64 16 147/81 (103) 98 03/11/18 04:12 98.0 62 16 151/74 (99) 98 03/10/18 23:25 98.0 62 16 118/67 (84) 96 03/10/18 19:20 97.8 62 18 153/73 (99) 99 03/10/18 15:33 97.8 60 18 184/91 (122) 100 03/10/18 14:09 58 16 194/111 (138) 99 Room Air 03/10/18 12:58 100 21 03/10/18 10:37 69 16 155/84 (107) 99 Room Air 03/10/18 09:20 97.5 79 24 179/92 (121) 100 I/O 03/10/18 03/10/18 03/10/18 03/11/18 03/11/18 03/11/18 07:00 15:00 23:00 07:00 15:00 23:00 Intake Total 240 ml Balance 240 ml Intake Oral 240 ml # Voids 1 Physical Exam GENERAL: Alert WN, WD, NAD, pleasant, thin, unkempt, male who appears older than stated age HEAD: NC, AT CV: RRR, without murmur, rub, gallop, no JVD, S1-S2 no S3-S4. RESP: Clear lungs throughout bilateral, no crackles, wheeze, rhonchi, symmetrical chest rise, nonlabored, able to speak in full sentences PSYCH: A+O x3, pleasant affect,speech, appropriate mood, insight and judgment SKIN: Normal turgor, normal texture Laboratory Laboratory Tests Test 03/10/18 11:00 03/10/18 15:20 03/10/18 18:10 White Blood Count 6.5 TH/MM3 Red Blood Count 5.01 MIL/MM3 Hemoglobin 15.4 GM/DL Hematocrit 45.7 % Mean Corpuscular Volume 91.1 FL Mean Corpuscular Hemoglobin 30.6 PG Mean Corpuscular Hemoglobin Concent 33.6 % Red Cell Distribution Width 13.5 % Platelet Count 299 TH/MM3 Mean Platelet Volume 9.1 FL Neutrophils (%) (Auto) 60.8 % Lymphocytes (%) (Auto) 27.2 % Monocytes (%) (Auto) 10.4 % Eosinophils (%) (Auto) 0.9 % Basophils (%) (Auto) 0.7 % Neutrophils # (Auto) 4.0 TH/MM3 Lymphocytes # (Auto) 1.8 TH/MM3 Monocytes # (Auto) 0.7 TH/MM3 Eosinophils # (Auto) 0.1 TH/MM3 Basophils # (Auto) 0.0 TH/MM3 CBC Comment DIFF FINAL Differential Comment Prothrombin Time 10.8 SEC Prothromb Time International Ratio 1.1 RATIO Activated Partial Thromboplast Time 29.5 SEC Blood Urea Nitrogen 14 MG/DL Creatinine 0.80 MG/DL Random Glucose 90 MG/DL Total Protein 8.2 GM/DL Albumin 4.2 GM/DL Calcium Level 9.0 MG/DL Magnesium Level 2.1 MG/DL Alkaline Phosphatase 76 U/L Aspartate Amino Transf (AST/SGOT) 37 U/L Alanine Aminotransferase (ALT/SGPT) 30 U/L Total Bilirubin 0.5 MG/DL Sodium Level 138 MEQ/L Potassium Level 3.9 MEQ/L Chloride Level 101 MEQ/L Carbon Dioxide Level 26.2 MEQ/L Anion Gap 11 MEQ/L Estimat Glomerular Filtration Rate 99 ML/MIN Total Creatine Kinase 385 U/L 321 U/L 316 U/L Creatine Kinase MB 6.9 NG/ML 5.6 NG/ML 5.3 NG/ML Creatine Kinase MB % 1.8 % 1.7 % 1.7 % Troponin I LESS THAN 0.02 NG/ML LESS THAN 0.02 NG/ML LESS THAN 0.02 NG/ML B-Type Natriuretic Peptide 13 PG/ML Lipase 137 U/L Imaging Last 24 hours Impressions Chest X-Ray 03/10/18 1038 Signed Impressions: CONCLUSION: 1. No acute abnormality or significant interval change. Assessment and Plan Assessment and Plan Proceed with plan to complete Lexiscan this a.m. If unremarkable, plans to be discharged home and establish with a primary care provider. Agree with the plan of care. Crys Spencer March 11, 2018 08:02
[2018-03-11] MEDS: amLODIPine BESYLATE 5 MG TAB PO SCH (08:08)
[2018-03-11] MEDS: SODIUM CHLORIDE 0.9% FLUSH 10 ML FLUSH IV FLUSH SCH ×2 (08:08→21:00)
[2018-03-11] MEDS: ASPIRIN 325 MG TAB PO SCH (08:08)
[2018-03-11] MEDS ORDERED: REGADENOSON INJ 0.4 MG/5 ML SYR ONE (10:07)
--- NOTE | 2018-03-11 10:41 | EKG ---
Date Performed: 03/10/2018 Time Performed: 17:43:29 PTAGE: 57 years EKG: Sinus rhythm NORMAL ECG PREVIOUS TRACING : 03/10/2018 15.39 DOCTOR: Kervin Conner Interpretating Date/Time 03/11/2018 10:40:37
--- NOTE | 2018-03-11 10:42 | EKG ---
Date Performed: 03/10/2018 Time Performed: 15:39:11 PTAGE: 57 years EKG: Sinus rhythm NORMAL ECG PREVIOUS TRACING : 03/10/2018 11.23 Since previous tracing, no significant change noted DOCTOR: Kervin Conner Interpretating Date/Time 03/11/2018 10:41:11
--- NOTE | 2018-03-11 11:45 | RADRPT ---
EXAM DATE: 03/11/2018 11:09 AM EDT AGE/SEX: 57 years / Male INDICATIONS:Angina. . Substernal chest pain with lightheadedness. CLINICAL DATA: This is the patient's initial encounter. Patient reports that signs and symptoms have been present for 1 day and indicates a pain score of 0/10. MEDICAL/SURGICAL HISTORY: Hypertension. Umbilical hernia repair. COMPARISON: No prior [facility] exams available for comparison. No external comparison. DOSE: 8.5 mCi Tc 99m Myoview at rest 25.5 mCi [id number] at rest 0.4 mg Lexiscan STRESS SYMPTOMS: None noted. EJECTION FRACTION: 52 % TECHNIQUE: The patient underwent pharmacologic stress with infusion of prescribed dose. Continuous ECG tracing was monitored during stress. Gated SPECT imaging was performed after stress and conventi onal SPECT imaging was performed at rest. The examination was performed on a SPECT/CT scanner, both attenuation and non-corrected datasets were reviewed. FINDINGS: Distribution: The maximum perfused segment at stress is in the lateral wall. Perfusion Study: Decrease perfusion at stress in the mid to apical septal wall. Gated Study: Hypokinetic septal wall. The ejection fraction is calculated at 52%. RISK CATEGORY: Intermediate (1-3 % Annual Mortality Rate) CONCLUSION: 1. Findings consistent with moderate size septal wall ischemia. 2. Hypokinetic septal wall with EF of 52%. Electronically signed by: Fady Silva MD 03/11/2018 11:43 AM EDT
--- NOTE | 2018-03-11 13:13 | PD.CONS ---
HPI Service cardiology Consult Requested By Reason for Consult chest pain and dyspnea Primary Care Physician No Primary Care Physician History of Present Illness This is a 57 yo WM with HTN, tobacco smoker (2ppd) and stable L lung mass (2017 PET scan negative) and no known cardiac history who presents with chest pain and dyspnea. He reports having chronic intermittent chest pain x several years; in the past week it has progressively worsened and now feels like a heavy weight on his chest worsened with exertion. He also has chronic dyspnea that he attributes to his usp smoking. Troponin levels x 3 are negative and EKG is unremarkable. Lexiscan shows abnormal showing moderate septal wall ischemia. He is currently resting comfortably with continued intermittent chest pain. (Deepa Ortega) Review of Systems Consitutional: DENIES: Fatigue, Fever, Chills, Weight gain, Weight loss Respiratory: DENIES: Cough, Snoring, Wheezing, Sputum production Cardiovascular: DENIES: Palpitations, Syncope, Tachycardia Gastrointestinal: DENIES: Nausea, Vomiting, Change in bowel habits, Reflux, Bloody stools, Melena (Deepa Ortega) Past Family Social History Allergies: Coded Allergies: No Known Allergies (Unverified Adverse Reaction, Unknown, 03/04/18) Past Medical History Hypertension Past Surgical History Hernia repair Reported Medications Reported Meds & Active Scripts Active Naproxen 500 Mg Tab 500 Mg PO BID PRN 10 Days Amlodipine (Amlodipine Besylate) 5 Mg Tab 5 Mg PO DAILY Active Ordered Medications Current Medications Medications (Trade) Dose Ordered Sig/Reji Route Start Time Stop Time Status Last Admin (NS Flush) 2 ml UNSCH PRN IVF 03/10/18 10:45 (NS Flush) 2 ml BID IV FLUSH 03/10/18 21:00 03/11/18 08:08 (Tylenol) 500 mg Q4H PRN PO 03/10/18 12:30 (Zofran Odt) 4 mg Q6H PRN PO 03/10/18 12:30 (Nitrostat Sl) 0.4 mg Q5M PRN SL 03/10/18 12:30 (Aspirin) 325 mg DAILY PO 03/11/18 09:00 03/11/18 08:08 (Norvasc) 5 mg DAILY PO 03/10/18 12:45 03/11/18 08:08 (Albuterol Neb) 2.5 mg Q2HR NEB PRN NEB 5/24/18 13:15 (Catapres) 0.1 mg Q6H PRN PO 03/10/18 17:30 Family History Noncontributory for early onset cardiovascular disease. Mother had hypertension and cardiomegaly, in her early 50s. Social History Former smoker quitting 1 month ago. Started smoking age 8, endorses 1.5-2 packs daily. Former alcohol abuse, quitting 2 year ago. Endorses regularly smokes marijuana when able. 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 (Deepa Ortega) Physical Exam Vital Signs Vital Signs Date Time Temp Pulse Resp B/P (MAP) Pulse Ox O2 Delivery O2 Flow Rate FiO2 03/11/18 11:51 98.6 70 18 139/73 (95) 100 03/11/18 07:55 97 21 03/11/18 07:34 97.7 64 16 147/81 (103) 98 03/11/18 04:12 98.0 62 16 151/74 (99) 98 03/10/18 23:25 98.0 62 16 118/67 (84) 96 03/10/18 19:20 97.8 62 18 153/73 (99) 99 03/10/18 15:33 97.8 60 18 184/91 (122) 100 03/10/18 14:09 58 16 194/111 (138) 99 Room Air Physical Exam GENERAL: SKIN: Warm and dry. HEAD: Atraumatic. Normocephalic. EYES: Pupils equal and round. No scleral icterus. No injection or drainage. ENT: No nasal bleeding or discharge. Mucous membranes pink and moist. NECK: Trachea midline. No JVD. CARDIOVASCULAR: Regular rate and rhythm. no murmurs RESPIRATORY: No accessory muscle use. Clear to auscultation. Breath sounds equal bilaterally. GASTROINTESTINAL: Abdomen soft, non-tender, nondistended. MUSCULOSKELETAL: Extremities without clubbing, cyanosis, or edema. No obvious deformities. NEUROLOGICAL: Awake and alert. No obvious cranial nerve deficits. Motor grossly within normal limits. Normal speech. PSYCHIATRIC: Appropriate mood and affect; insight and judgment normal. Laboratory Laboratory Tests Test 03/10/18 15:20 03/10/18 18:10 Total Creatine Kinase 321 316 Creatine Kinase MB 5.6 5.3 Creatine Kinase MB % 1.7 1.7 Troponin I LESS THAN 0.02 LESS THAN 0.02 (Deepa Ortega) Result Diagram: 03/10/18 1100 03/10/18 1100 Imaging Last 24 hours Impressions Myocardial Perfusion Scan Nuc Med 03/11/18 0000 Signed Impressions: CONCLUSION: 1. Findings consistent with moderate size septal wall ischemia. 2. Hypokinetic septal wall with EF of 52%. (Deepa Ortega) Assessment and Plan Problem List: (1) Chest pain ICD Codes: R07.9 - Chest pain, unspecified Status: Acute Assessment and Plan 57 yo WM with HTN, tobacco smoker (2ppd) and stable L lung mass (2017 PET scan negative) and no known cardiac history who presents with chest pain and dyspnea. He reports having chronic intermittent chest pain x several years; in the past week it has progressively worsened and now feels like a heavy weight on his chest worsened with exertion. 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 chest pain- abnormal lexiscan will plan for [facility] today or tomorrow keep npo (Deepa Ortega) Assessment and Plan LHC - normal coronaries. DC today FU PCP (Shane Constantino MD) Deepa Ortega March 11, 2018 13:13 Shane Constantino MD March 11, 2018 14:19
[2018-03-11] MEDS ORDERED: HEPARIN-NS/PF INJ 1,000 ML ONE (13:45)
[2018-03-11] MEDS ORDERED: MIDAZOLAM HCL 2 MG/2 ML VIAL ONE ×2 (13:46→14:03)
[2018-03-11] MEDS ORDERED: HEPARIN SODIUM - IV 10,000 UNITS/10 ML VIAL ONE (13:56)
--- NOTE | 2018-03-11 14:23 | CATHPROC ---
Assignment Editor HIS Report Study Information Study Number Admission Scheduled Start Study Start [id number] Mar 10 2018 12:01PM 03/11/2018 Mar 11 2018 1:34PM [facility] Cardiac Catheterization Admit Source Facility Department Emergency department [facility] - Loss Prevention Auditor Physician and Clinical Staff Initial Shane Dsouza Manager Enterprise Rogers Lepe,RN Other cathlab, cathlab Recorder Brennan Horowitz RCIS(BS) Scrub Jose De Jesus Irby,RT(R) Procedures Performed Procedure Location (Site) Vessel Name Coronary Angiograms LCA Left Coronary Coronary Angiograms RCA Right Coronary L Heart Cath Equipment Time Second Cutter Description Size Mfg Part Number Used/Scraped TRANSDUCER, TRUWAVE [id number] 13:40 DEMPSEY SHAH * Used W/STOCKCOCK *[id number] *[id number] 13:40 [employer] PACK, CCL CUSTOM * Used *[id number] 13:40 [employer] SUPPORT, ARTERIAL ADULT 31011 *[id number] Used [id number] 13:40 [employer] PACER PEN, SKIN DUAL W/ RULER * Used *[id number] 13:53 [employer] JR 5.0 DXTERITY CATHETER fr 5 [id number] Used BAND, RADIAL COMPRESSION TR [id number] 14:20 [employer] MEDICAL 24CM Used SHORT 24 *[id number] SHEATH, FR6 RADIAL PRELUDE 13:40 [employer] FR 6 [id number] Used EASE 11CM [id number] 13:40 [employer] WIRE, EXCHANGE 260CM 3MMJ 260CM Used *[id number] 13:40 N[employer] MANIFOLD, 4 PORT * Used *[id number] 13:40 [employer] OMNIPAQUE, 350 MG, 150ML 150ML [id number] Used [id number] 13:40 [employer]QU[employer] PURE BLANKET,WARM AIR CCL * Used *[id number] History: Current Medications Medication Dosage/Unit Route Frequency Last Date/Time Taken ASA History: Allergies Allergy Reaction No Known Allergies History: Risk Factors Family History of Hypertension Dyslipidemia Previous LA Previous Heart Failure Premature CAD Yes No Yes No No Prior Valve Prior PCI Prior CABG Surgery No No No Cerebrovascular Peripheral Artery Chronic Lung On Dialysis Diabetes Disease Disease Disease No No No Yes No History: Symptoms/Diagnosis Selection Items Chest pain History: Stress Tests Stress or Imaging Studies Performed Yes Standard Exercise Stress Test No Stress Echo No Stress Test SPECT Stress Test SPECT Result Stress Test SPECT Ischemia Risk/Extent Yes Positive Intermediate Stress Test CMR No Cardiac CTA Coronary Calcium Score No No History: Other Disease Selection Items HTN History: Other Current Smoker Packs a Day Years Used Pack Years Yes 2 40 80 Labs Hgb (g/dl) Hct (%) WBC (l/cumm) Platelets (thousands) 11.60-17.00 35.00-51.00 4.00-11.00 150.00-450.00 15.4 45.7 6.5 299 Glucose (mg/dl) BUN (mg/dl) Creatinine (mg/dl) BUN:Creatinine (1:x) 74.00-106.00 7.00-18.00 0.50-1.30 10.00-20.00 90 14 0.8 17.5 Na (meq/l) K (meq/l) 136.00-145.00 3.50-5.10 138 3.9 INR (PTT:PT) 0.90-1.10 1.1 Troponin I (ng/ml) CPK (u/l) CPK-MB (ng/ML) 0.02-0.05 26.00-308.00 0.50-3.60 0.02 316 5.3 Medication Medication Total Dose (Bolus/Oral) Medication Total Dosage/Unit 1% XYLOCAINE 3 mL FENTANYL 50 mcg HEPARIN 3000 units NTG (IC) 200 mcg VERSED 2 mg Medications (Bolus/Oral) Medication Time Given Dosage/Unit Administered By Reason VERSED 03/11/2018 2:04:31 PM 2 mg Rogers Lepe 2 mg VERSED given in lab by Rogers Lepe RN in Left Antecubital via Peripheral IV. Ordered by Shane Constantino. FENTANYL 03/11/2018 2:04:37 PM 50 mcg Rogers Lepe 50 mcg FENTANYL given in lab by Rogers Lepe RN in Left Antecubital via Peripheral IV. Ordered by Shane Fajardo. 1% XYLOCAINE 03/11/2018 2:07:55 PM 3 mL Shane Constantino 3 mL 1% XYLOCAINE given in lab by Shane Constantino in Right Radial via Subcutaneous. NTG (IC) 03/11/2018 2:09:53 PM 200 mcg Shane Constantino 200 mcg NTG (IC) given in lab by Shane Constantino in Right Radial via Intra-coronary. HEPARIN 03/11/2018 2:10:03 PM 3000 units Rogers Lepe 3000 units HEPARIN given in lab by Rogers Lepe, RN in Left Antecubital via Peripheral IV. Ordered Shane Richards. Medication (Drip) Medication Time Given Dosage/Unit Concentration/Unit Diluent (ml) Solutio n IV Solutions 03/11/2018 1:34:28 PM 0 mL (IV) 500 NaCl .9 Patient arrived on IV Solutions in Left Antecubital via Peripheral IV. Pump/Drip Flow = 20 ml/hr usin g NaCl .9. Initial Case Assessment Cardiovascular HR Rhythm NIBP Chest Pain 64 nsr 169/81 0 Edema Present Skin color Skin None Normal Warm Dry Circulatory - Right Pulses Dorsalis Pedis Femoral Radial 1 3 2 Scale (0,1,2,3,4,d) Scale (0,1,2,3,4,d) Neurological State Oriented to time-place- Alert Moves all extremities person Respiration - General Respiration Rate SpO2 (%) (B/min) 15 100 Final Case Assessment Cardiovascular HR Rhythm NIBP Chest Pain 72 nsr 134/74 0 Edema Present Skin color Skin None Normal Warm Dry Circulatory - Right Pulses Dorsalis Pedis Femoral Radial 1 3 2 Scale (0,1,2,3,4,d) Scale (0,1,2,3,4,d) Neurological State Oriented to time-place- Alert Moves all extremities person Respiration - General Respiration Rate SpO2 (%) (B/min) 15 100 Chronological Log Time Study Chronological Log 13:34:19 Patient arrived via Bed. 13:34:19 Patient Name, D.O.B, / Armband Verified By R.N. 13:34:20 Consent signed by the physician and the patient and verified by the Loss Prevention Auditor staff. 13:34:21 Pre-op and post- op instructions given; patient acknowledges understanding of instructions. 13:34:21 Verbal Stimulation=2 Physical Stimulation=2 Airway=2 Respiration=2 TOTAL=8. (0=absent, 1=li mited, 2=present) 13:34:22 Presedation assessment performed by Loss Prevention Auditor RN. 13:34:22 Allens test performed on the right radial and ulnar artery. Positive. 13:34:24 Immediate Presedation assesment performed by physician. 13:34:24 Patient has been NPO for More than 6Hrs. 13:34:25 Skin Breakdown- none per patient 13:34:25 Patient Warmer Placed on the Table. 13:34:26 [place] [employer] Protected 13:34:27 A # 20 IV was noted in the Antecubital (left). Grade = 0 13:34:28 Patient arrived on IV Solutions in Left Antecubital via Peripheral IV. Pump/Drip Flow = 20 ml/hr using NaCl .9. 13:34:29 History and physical on the chart or being dictated. Vitals capture started with the following parameters, Patient=Adult, Interval=5 min, Initial Pr ftusim=940 mmHg, 13:40:10 Deflation Rate=5 mmHg, Cuff placed on Right Arm 13:41:29 HR=63 bpm, BQHP=496/81 mmhg, BgE4=173.0 %, Resp=9 B/min, Pain=0, Mauro=10, Gaytan=2 Assessment: Initial Case, HR=64 BPM, Rhythm=nsr, IETR=744/81 mmhg, Chest Pain=0, Edema=None, Co sadi=Normal, Skin = Warm, Dry 13:43:01 Right Pulses: Mata Ped=1, Femoral=3, Radial=2 Neurological: State=Alert, Ox3, RO Respiration: Resp=15 B/min, IsZ1=823 % 13:45:49 HR=63 bpm, WGHL=699/82 mmhg, YdJ9=763.0 %, Resp=8 B/min, Pain=0, Mauro=10, Gaytan=2 13:46:34 Right Radial and groin(s) prepped with 2% chlorhexidine, and draped after a 3 min. waiting time. 13:49:42 paged 13:50:33 Reference ECG taken 13:50:46 Reference ECG taken 13:50:52 HR=69 bpm, MORQ=295/85 mmhg, LgO5=366.0 %, Resp=14 B/min, Pain=0, Mauro=10, Gaytan=2 13:51:11 MD responded 13:54:34 Pressure channel 1 zeroed. 13:55:49 HR=67 bpm, DIQR=474/91 mmhg, SfL9=149.0 %, Resp=9 B/min, Pain=0, Mauro=10, Gaytan=2 14:00:52 HR=60 bpm, FKHT=333/83 mmhg, SpO2=99.0 %, Resp=19 B/min, Pain=0, Mauro=10, Gaytan=2 14:03:40 MD arrived. 14::44 Contrast Scanned 14::44 Immediate Presedation assesment performed by physician. Time Out. Correct patient, correct procedure, correct physician, labs, allergies, and equipment verified with computer laboratory technician 14:04:23 team present. Fire risk assesment completed (see hard stop sheet for coding). Time Out Conc urred by MD and individual staff in procedure. 14::31 2 mg VERSED given in lab by Rogers Lepe RN in Left Antecubital via Peripheral IV. Ordere d by Shane Constantino. 14:04:37 50 mcg FENTANYL given in lab by Rogers Lepe RN in Left Antecubital via Peripheral IV. Or dered by Shane Constantino. 14:04:45 Verbal Stimulation=2 Physical Stimulation=2 Airway=2 Respiration=2 TOTAL=8. (0=absent, 1=li mited, 2=present) 14:05:45 HR=70 bpm, PWLA=712/95 mmhg, SpO2=99 %, Resp=15 B/min, Pain=0, Mauro=10, Gaytan=2 14:07:54 Case Start 14:07:55 3 mL 1% XYLOCAINE given in lab by Shane Constantino in Right Radial via Subcutaneous. 14::31 Access site was Right Radial Artery. A SHEATH, FR6 RADIAL PRELUDE EASE 11CM FR 6 was advanced into the Radial (right) using the Perc utaneous 14:: technique. 14:09:53 200 mcg NTG (IC) given in lab by Shane Constantino in Right Radial via Intra-coronary. 14:: 3000 units HEPARIN given in lab by Rogers Lepe RN in Left Antecubital via Peripheral IV. Ordered by Shane Constantino. A JR 5.0 DXTERITY CATHETER fr 5 was advanced over a wire. OMNIPAQUE, 350 MG, 150ML 150ML was us ed for :: injections. 14:11:23 HR=73 bpm, GUNQ=833/93 mmhg, SpO2=99.0 %, Resp=17 B/min, Pain=0, Mauro=10, Gaytan=2 Recorded Pressure: LV, HR=80, Condition=Condition 1 14:12:24 (Left Ventricle) LV 140/8/12 Recorded Pressure: LV, Ao, HR=80, Condition=Condition 1 14:12:28 (Left Ventricle) LV 141/8/12, (Aorta) Ao 156/85/116 14:12:58 The RCA was injected and visualized at various angles. OMNIPAQUE, 350 MG, 150ML 150ML used . Recorded Pressure: Ao, HR=72, Condition=Condition 1 14:13:05 (Aorta) Ao 161/90/120 After removing the current catheter a JL 3.5 INFINITI CATHETER FR 5 was advanced over a WIRE, E XCHANGE 260CM 14:13:32 3MMJ 260CM. 14:14:43 The LCA was injected and visualized at various angles. OMNIPAQUE, 350 MG, 150ML 150ML used . 14:15:32 Catheter was removed 14:15:51 Case End 14:15:54 HR=74 bpm, KXII=431/74 mmhg, SpO2=98.0 %, Resp=8 B/min Assessment: Final Case, HR=72 BPM, Rhythm=nsr, IKBC=425/74 mmhg, Chest Pain=0, Edema=None, [place]al[place] r=Normal, Skin = Warm, Dry 14:15:57 Right Pulses: Mata Ped=1, Femoral=3, Radial=2 Neurological: State=Alert, Ox3, RO Respiration: Resp=15 B/min, VfQ7=672 % 14:16:10 Catheter(s) removed without difficulty Radial Compression Device Used. 14 mLs of air placed in BAND, RADIAL COMPRESSION TR SHORT 24 24 CM. Affected 14:16:12 hand 98 % O2 saturation. 14:16:17 Sterile dressing applied to site 14:16:18 No case complications noted. 14:16:19 Cine recording checked. 14:16:20 Bedside Report will be given. 14:16:22 Verbal Stimulation=2 Physical Stimulation=2 Airway=2 Respiration=2 TOTAL=8. (0=absent, 1=li mited, 2=present) 14:16:28 A Left Heart Cath was performed. 14:21:23 HR=69 bpm, MSTF=254/95 mmhg, SpO2=99.0 %, Resp=12 B/min, Pain=0, Mauro=10, Gaytan=2 14:23:35 Patient moved to stretcher 14:23:35 Vitals capture stopped. End Study - Contrast Media Used In Study Contrast Total Opened (mL) Total Used (mL) Total Wasted (mL) Omnipaque 30 30 0 End Study - Maximum Contrast Load Max Contrast Load (mL) 368.8 End Study - Radiation Exposure Fluoro Time (minutes) 1.1 End Study - Patient Disposition Complications Transferred To Interventional Outcome No Loss Prevention Auditor Holding No attempt made
[2018-03-11] MEDS ORDERED: MISC INFORMATION XX ONE (14:30)
--- NOTE | 2018-03-11 15:42 | HHI.PR ---
Subjective Remarks Follow-up on patient with chest pain. Patient seen and examined. Patient status post cardiac catheterization by Dr. Constantino who has cleared patient for discharge to home. Patient evaluated in DOCU. Patient denies any complaints of left-sided chest pain. Denies any shortness of breath. Denies any fever chills. Denies any nausea, vomiting or abdominal pain. Discussed with patient CT chest findings and recommended follow-up for repeat imaging in 18-24 months. Objective Vitals Vital Signs Date Time Temp Pulse Resp B/P (MAP) Pulse Ox O2 Delivery O2 Flow Rate FiO2 03/11/18 11:51 98.6 70 18 139/73 (95) 100 03/11/18 07:55 97 21 03/11/18 07:34 97.7 64 16 147/81 (103) 98 03/11/18 04:12 98.0 62 16 151/74 (99) 98 03/10/18 23:25 98.0 62 16 118/67 (84) 96 03/10/18 19:20 97.8 62 18 153/73 (99) 99 I/O 03/10/18 03/10/18 03/10/18 03/11/18 03/11/18 03/11/18 06:59 14:59 22:59 06:59 14:59 22:59 Intake Total 240 ml Balance 240 ml Intake Oral 240 ml # Voids 1 Result Diagram: 03/10/18 1100 03/10/18 1100 Imaging Last Impressions Myocardial Perfusion Scan Nuc Med 03/11/18 0000 Signed Impressions: CONCLUSION: 1. Findings consistent with moderate size septal wall ischemia. 2. Hypokinetic septal wall with EF of 52%. Chest X-Ray 03/10/18 1038 Signed Impressions: CONCLUSION: 1. No acute abnormality or significant interval change. Chest CT 03/10/18 0000 Signed Impressions: CONCLUSION: 1. Redemonstration of biapical scarring with stable 8 mm subpleural solid nodu le in the anterior left lung apex. Consider follow-up CT examination in 18-24 m onths per 2017 Fleischner criteria. 2. Mild coronary artery calcifications. Objective Remarks GENERAL: This is a thin male patient, in no apparent distress. Awake and alert. Appears comfortable. SKIN: No rashes, ecchymoses or lesions. Warm and dry. HEAD: Atraumatic. Normocephalic. No temporal or scalp tenderness. EYES: Pupils equal round and reactive. No injection or drainage. ENT: Nose without bleeding or purulent drainage. Airway patent. MMM. NECK: Trachea midline. CARDIOVASCULAR: Regular rate and rhythm without murmurs, gallops, or rubs. RESPIRATORY: Nonlabored. Clear to auscultation. Breath sounds equal bilaterally. No wheezes, rales, or rhonchi. GASTROINTESTINAL: Abdomen soft, non-tender, nondistended. No guarding. MUSCULOSKELETAL: Extremities without clubbing, cyanosis, or edema. Right wrist in splint. NEUROLOGICAL: Awake and alert. Cranial nerves II through XII grossly intact. Motor and sensory functions grossly intact. No focal neurological deficits. Normal speech. PSYCHIATRIC: Calm and cooperative with examination Procedures s/p cardiac catheterization performed by Dr. Constantino 03/11/18 A/P Assessment and Plan 57-year-old male with past medical history significant for hypertension, extensive history of tobacco use, stable left lung mass and no known cardiac history who presented with chest pain and dyspnea. Found to have abnormal Lexiscan underwent left heart catheterization revealing normal coronaries. Patient is cleared for discharge from cardiac standpoint. Chest pain Abnormal lexiscan -s/p cardiac catheterization revealing normal coronaries -Cleared for discharge from cardiac standpoint Hypertension, controlled -Continue on Norvasc 5 mg daily Extensive tobacco use history Patient reports quitting 1 month ago but prior to quitting patient endorses 1/2- 2 packs daily having started at the age of 8 -Strongly encourage patient to maintain smoking cessation Stable left lung mass Status post PET scan 2016 which was negative -CT of the chest obtained this admission reveals biapical scarring with stable 8 mm subpleural solid nodule in the anterior left lung apex, consider follow-up CT in 18-24 months DVT prophylaxis -ambulation Discharge patient to home Condition on discharge: Stable Heart healthy Diet as tolerated Ad Joan activity Repeat CT of the chest in 18-24 months for reevaluation of anterior left lung apex nodule Rx written: ASA 81mg daily Follow-up with primary care physician and cardiology Lois Su March 11, 2018 15:42
[2018-03-11] MEDS ORDERED: ASPI-516 CHEW (15:45)
[2018-03-11] MEDS: ACETAMINOPHEN 500 MG CPLT PO PRN (22:16)
[2018-03-12] VITALS (13 sets, daily range): BP systolic 124–137; BP diastolic 62–64; PULSE 53–71; RESP 18; TEMP 97.9–98.2; O2SAT 97–98
[2018-03-12] MEDS: SODIUM CHLORIDE 0.9% FLUSH 10 ML FLUSH IV FLUSH SCH (09:00)
[2018-03-12] MEDS: ASPIRIN 325 MG TAB PO SCH (09:27)
[2018-03-12] MEDS: ACETAMINOPHEN 500 MG CPLT PO PRN (09:27)
[2018-03-12] MEDS: amLODIPine BESYLATE 5 MG TAB PO SCH (09:27)
--- NOTE | 2018-03-17 07:35 | TR ---
Date Performed: 03/11/2018 Time Performed: 10:07:11 DOCTOR: Kervin Conner DRUG LIST: CLINICAL HISTORY: REASON FOR TEST: REASON FOR ENDING: OBSERVATION: CONCLUSION: COMMENTS: Lexiscan stress test was performed under standard four minute protocol. Radionuclide was injected one minute prior to ending the test. No electrocardiographic abormalities were present t o suggest ischemia. Nuclear imaging and interpretation are pending.
== END 2018-03-12 15:35 | disposition home or self-care (01) ==
LOC: NEPE 09:01 → NEDA 12:01 → NEPFCDU 14:43 → HCIS 03-11 13:34 → HCPC 03-11 21:45
PROVIDERS: ADMIT Internal Medicine; ATTEND Internal Medicine
DX: R07.89 Other chest pain (principal); I25.10 Atherosclerotic heart disease of native coronary artery without angina pectoris; J44.9 Chronic obstructive pulmonary disease, unspecified; I10 Essential (primary) hypertension; R06.02 Shortness of breath; R42 Dizziness and giddiness; R94.31 Abnormal electrocardiogram [ECG] [EKG]; F12.90 Cannabis use, unspecified, uncomplicated; Z87.891 Personal history of nicotine dependence; Z91.14 Patient's other noncompliance with medication regimen
CPT/HCPCS: 71046; 71250; 78452; 80053; 82550; 82552; 83690; 83735; 83880; 84484; 85025; 85610; 85730; 93005; 93017; 93454; 99152; 99285; A9502; C1769; C1893; G0378; J1644; J2250; J2785; J3010; Q9967